=== PATIENT | male | born 1955 | race Caucasian/White ===

== ENCOUNTER 2018-02-07 03:04 | Inpatient (IN) | payer OTHER ==
[~2018-02-07] VITALS: Ht 175.3 cm; Wt 100.3 kg
[2018-02-07 03:06] VITALS: BP 243/134; PULSE 120; RESP 24; TEMP 99.1; O2SAT 96
[2018-02-07] MEDS ORDERED: LABETALOL HCL 100 MG/20 ML VIAL IV PUSH ONE (03:15)
[2018-02-07] MEDS ORDERED: CLINDAMYCIN 600 MG/NS PREMIX 50 ML IV ONE (03:15)
[2018-02-07 03:16] VITALS: BP 181/97; PULSE 98; RESP 20; O2SAT 94
--- NOTE | 2018-02-07 03:22 | PD ---
HPI Chief Complaint: Respiratory Symptoms Time Seen by Provider: 03:06 Travel History International Travel<30 days: No Contact w/Intl Traveler<30days: No Traveled to known affect area: No History of Present Illness HPI pt is having neck swelling started as a small lump on his right neck and rapidly swelled to entire submental area , pt feels tightness in his neck area and has obvious enlargement of his neck , sub mental area submandible area swollen to the point of looking like a goiter denies thyroid issues and the rapid swelling occurred within 24-36 hours , he took nothing for the swelling . he feels as if neck is tight , denies choking sensation , has not seen another md for this complaint [facility] Past Medical History Hypertension: Yes Tetanus Vaccination: > 5 Years Influenza Vaccination: No Past Surgical History Surgical History: No Previous Surgery Social History Alcohol Use: Yes (occ) Tobacco Use: No Substance Use: No Allergies-Medications (Allergen,Severity, Reaction): Coded Allergies: No Known Allergies (Verified Allergy, Unknown, 02/07/18) Reported Meds & Prescriptions Reported Meds & Active Scripts Active No Active Prescriptions or Reported Medications Review of Systems Except as stated in HPI: all other systems reviewed are Neg Physical Exam Narrative GENERAL: pt has neck swelling obvious to lower neck SKIN: Warm and dry. HEAD: Atraumatic. Normocephalic. EYES: Pupils equal and round. No scleral icterus. No injection or drainage. ENT: No nasal bleeding or discharge. Mucous membranes pink and moist. NECK: swelling to neck area area posterior pharynx is normal CARDIOVASCULAR: Regular rate and rhythm. RESPIRATORY: No accessory muscle use. Clear to auscultation. Breath sounds equal bilaterally. GASTROINTESTINAL: Abdomen soft, non-tender, nondistended. Hepatic and splenic margins not palpable. MUSCULOSKELETAL: Extremities without clubbing, cyanosis, or edema. No obvious deformities. NEUROLOGICAL: Awake and alert. No obvious cranial nerve deficits. Motor grossly within normal limits. Five out of 5 muscle strength in the arms and legs. Normal speech. PSYCHIATRIC: Appropriate mood and affect; insight and judgment normal. Data Data Last Documented VS Orders Orders Labetalol Inj (Trandate Inj) (02/07/18 03:15) Clindamycin 600 Mg/Ns Premix (Cleocin 60 (02/07/18 03:15) Ct Soft Tiss Neck W/O Iv Cont (02/07/18 ) Complete Blood Count With Diff (02/07/18 03:06) Blood Culture (02/07/18 03:06) Comprehensive Metabolic Panel (02/07/18 03:06) Lipase (02/07/18 03:06) Lactic Acid (02/07/18 03:18) Admit Order (Ed Use Only) (02/07/18 05:00) Dexamethasone Inj (Decadron Inj) (02/07/18 05:00) Labs Laboratory Tests Test 02/07/18 03:13 02/07/18 03:38 White Blood Count 20.0 TH/MM3 Red Blood Count 5.12 MIL/MM3 Hemoglobin 16.2 GM/DL Hematocrit 46.2 % Mean Corpuscular Volume 90.4 FL Mean Corpuscular Hemoglobin 31.6 PG Mean Corpuscular Hemoglobin Concent 35.0 % Red Cell Distribution Width 13.0 % Platelet Count 174 TH/MM3 Mean Platelet Volume 8.9 FL Neutrophils (%) (Auto) 86.8 % Lymphocytes (%) (Auto) 7.7 % Monocytes (%) (Auto) 5.0 % Eosinophils (%) (Auto) 0.0 % Basophils (%) (Auto) 0.5 % Neutrophils # (Auto) 17.4 TH/MM3 Lymphocytes # (Auto) 1.5 TH/MM3 Monocytes # (Auto) 1.0 TH/MM3 Eosinophils # (Auto) 0.0 TH/MM3 Basophils # (Auto) 0.1 TH/MM3 CBC Comment DIFF FINAL Differential Comment Blood Urea Nitrogen 11 MG/DL Creatinine 1.15 MG/DL Random Glucose 287 MG/DL Total Protein 7.8 GM/DL Albumin 3.4 GM/DL Calcium Level 8.9 MG/DL Alkaline Phosphatase 98 U/L Aspartate Amino Transf (AST/SGOT) 16 U/L Alanine Aminotransferase (ALT/SGPT) 27 U/L Total Bilirubin 1.7 MG/DL Sodium Level 136 MEQ/L Potassium Level 3.5 MEQ/L Chloride Level 98 MEQ/L Carbon Dioxide Level 26.0 MEQ/L Anion Gap 12 MEQ/L Estimat Glomerular Filtration Rate 65 ML/MIN Hemoglobin A1c 9.9 % Lipase 62 U/L Lactic Acid Level 1.9 mmol/L MDM Medical Decision Making Medical Screen Exam Complete: Yes Emergency Medical Condition: Yes Medical Record Reviewed: Yes Differential Diagnosis goiter vs ludwigs angina vs parotiditis vs trench mouth vs thyroid CA or cystic thyroid nodule other Narrative Course CT shows significant fullness to the submental area bilateral with possible early abscess . WBC 20 pt given clindmycin IV and admitted for close follow of airway and resp status, However at this time he is protecting his airway and no indication to intubate in ER at this time, no drooling no voice change, will admit for ENT consult in the AM Diagnosis Primary Impression: Swollen neck Admitting Information Admitting Physician Requests: Admit Scripts No Active Prescriptions or Reported Meds Neftaly Cash MD Feb 07, 2018 03:22
[2018-02-07 03:29] LABS: AUTOMATED NEUTROPHIL # 17.4 TH/MM3 (1.8-7.7); BASOPHIL # 0.1 TH/MM3 (0-0.2); BASOPHIL % 0.5 % (0.0-2.0); HEMATOCRIT 46.2 % (39.0-51.0); HEMOGLOBIN 16.2 GM/DL (13.0-17.0); LYMPH % 7.7 % (9.0-44.0); LYMPHOCYTE # 1.5 TH/MM3 (1.0-4.8); MEAN CELL VOLUME 90.4 FL (80.0-100.0); MEAN CORPUSCULAR HEMOGLOBIN 31.6 PG (27.0-34.0); MEAN PLATELET VOLUME 8.9 FL (7.0-11.0); NEUT % 86.8 % (16.0-70.0); PLATELET COUNT 174 TH/MM3 (150-450); RED BLOOD COUNT 5.12 MIL/MM3 (4.50-5.90)
[2018-02-07 04:01] LABS: ALBUMIN 3.4 GM/DL (3.4-5.0); ALT (GPT) 27 U/L (12-78); AST (GOT) 16 U/L (15-37); BLOOD UREA NITROGEN 11 MG/DL (7-18); CALCIUM 8.9 MG/DL (8.5-10.1); CHLORIDE 98 MEQ/L (98-107); CREATININE 1.15 MG/DL (0.60-1.30); GLOMERULAR FILTRATION RATE 65 ML/MIN (>89); GLUCOSE,RANDOM 287 MG/DL (74-106); SODIUM (NA) 136 MEQ/L (136-145)
[2018-02-07 04:03] LABS: ALKALINE PHOSPHATASE 98 U/L (45-117); TOTAL BILIRUBIN ADULT 1.7 MG/DL (0.2-1.0); TOTAL PROTEIN 7.8 GM/DL (6.4-8.2)
--- NOTE | 2018-02-07 04:05 | RADRPT ---
EXAM DATE: 02/07/2018 3:34 AM EDT AGE/SEX: 62 years / Male INDICATIONS: Right side lump. CLINICAL DATA: This is the patient's initial encounter. Patient reports that signs and symptoms have been present for 1 day and indicates a pain score of 5/10. MEDICAL/SURGICAL HISTORY: Hypertension. None. RADIATION DOSE: 17.29 CTDI (mGy) COMPARISON: No prior exams available for comparison. TECHNIQUE: Helical acquisition was performed using a multirow detector CT scanner without contrast. Using automated exposure control and adjustment of the mA and/or kV according to patient size, radiat ion dose was kept as low as reasonably achievable to obtain optimal diagnostic quality images. DICOM format image data is available electronically for review and comparison. FINDINGS: Nasopharynx: The nasopharyngeal airway has a normal configuration. No mucosal thickening or mass is seen. Oropharynx: The left tonsillar pillar is thicker than the right. There is fullness of the left aryep iglottic fold. Larynx: The supraglottic, glottic, and infraglottic structures are intact. Parapharyngeal: The parapharyngeal space is intact. Salivary Glands: The parotid and submandibular glands are intact. Lymph Nodes: There is a prominent right submandibular lymph node measuring 2.8 x 2.3 cm across. Ther e is very impressive subcutaneous edema in the anterior and submandibular regions. I don't see draina ble fluid collection. There is very impressive diffuse subcutaneous edema extending into the submenta l region. There are reactive lymph nodes and retrojugular chains bilaterally Thyroid: Grossly intact. Bones: Unremarkable. CONCLUSION: 1. Very impressive edema in the submental and submandibular regions. Prominent lymph node underneath the right side of the mandible. Concerning thickening of the left tonsillar pillar and thickening o f the left aryepiglottic fold. Differential would include a tonsillar infection/abscess or conceivabl y soft tissue malignancy. Directed visualization with an ENT referral is recommended in the a.m. Electronically signed by: Mata Martins MD 02/07/2018 4:04 AM EDT
[2018-02-07] MEDS ORDERED: DEXAMETHASONE SOD PHOS 4 MG/ML VIAL IV PUSH ONE (05:00)
[2018-02-07 05:02] VITALS: BP 168/92; PULSE 89; RESP 18; O2SAT 96
[2018-02-07] MEDS ORDERED: CLINDAMYCIN 600 MG/NS PREMIX 50 ML IV SCH (05:15)
[2018-02-07] MEDS ORDERED: NALOXONE HCL 0.4 MG/ML AMP IV PUSH PRN (07:15)
[2018-02-07] MEDS ORDERED: ONDANSETRON ODT 4 MG TAB PO PRN (07:15)
[2018-02-07] MEDS ORDERED: SENNOSIDES 8.6 MG TAB PO PRN (07:15)
[2018-02-07] MEDS ORDERED: LACTULOSE SYRUP 20 GM/30 ML CUP PO PRN (07:15)
[2018-02-07] MEDS ORDERED: BISACODYL 10 MG SUPP RECTAL PRN (07:15)
[2018-02-07] MEDS ORDERED: ACETAMINOPHEN 325 MG TAB PO PRN ×2 (07:15)
[2018-02-07] MEDS ORDERED: ACETAMINOPHEN/HYDROcodone 325 MG/5 MG TAB PO PRN (07:15)
[2018-02-07] MEDS ORDERED: MAGNESIUM HYDROXIDE SUSP 30 ML CUP PO PRN (07:15)
[2018-02-07] MEDS ORDERED: SODIUM CHLORIDE 0.9% FLUSH 10 ML FLUSH IV FLUSH PRN (07:15)
[2018-02-07 07:23] VITALS: BP 180/101; PULSE 87; RESP 18; TEMP 98.3; O2SAT 96
[2018-02-07] MEDS: SODIUM CHLORIDE 0.9% FLUSH 10 ML FLUSH IV FLUSH SCH ×2 (09:00→21:00)
[2018-02-07] MEDS: DOCUSATE SODIUM 50 MG/SENNA 8.6 MG TAB PO SCH ×2 (09:00→21:35)
[2018-02-07] MEDS ORDERED: DEXTROSE 50% IN WATER 50 ML VIAL(D50) IV PUSH PRN (09:30)
[2018-02-07] MEDS ORDERED: GLUCAGON 1 MG/ML VIAL OTHER PRN (09:30)
--- NOTE | 2018-02-07 09:30 | HHI.HP ---
HPI Service CP Hospitalists Primary Care Physician No Primary Care Physician Admission Diagnosis neck infection Chief Complaint: Neck swelling Travel History International Travel<30 Days: No Contact w/Intl Traveler <30 Da: No Traveled to Known Affected Are: No History of Present Illness This is a 62-year-old male patient with past medical history which includes hypertension not currently on medications. Patient presents to emergency department with reports of neck swelling which started 3 days ago (on Sunday) as a small lump on the right side of his neck which is has increased to the entire neck. Patient also reports associated feeling of tightness/fullness throughout his neck. Patient reports he has had, "bad teeth," for sometime. Patient denies fevers or chills. Patient also denies shortness of breath or drooling, however patient does report some coughing/choking when he lays flat and difficulty swallowing food. Patient offers no other medical complaints at this time denies fevers chills cough congestion shortness of breath chest pain nausea vomiting diarrhea constipation or unexpected weight loss. Review of Systems Constitutional: DENIES: Fatigue, Fever, Weight loss, Chills Respiratory: COMPLAINS OF: Cough (coughing/choking when laying flat), DENIES: Sputum production, Shortness of breath Cardiovascular: DENIES: Chest pain, Palpitations, Dyspnea on Exertion, Lower Extremity Edema Musculoskeletal: COMPLAINS OF: Stiffness, Neck pain Neurologic: DENIES: Abnormal gait, Headache, Localized weakness Psychiatric: DENIES: Anxiety, Confusion, Depression Past Family Social History Past Medical History Hypertension not on medication Past Surgical History Denies prior surgeries Reported Medications Denies daily medications Allergies: Coded Allergies: No Known Allergies (Verified Allergy, Unknown, 02/07/18) Family History Reviewed and noncontributory Social History Retired truck dispatcher EtOH 2 beers per day Denies tobacco use now in the past Denies illicit drug use Physical Exam Vital Signs Vital Signs Date Time Temp Pulse Resp B/P (MAP) Pulse Ox O2 Delivery O2 Flow Rate FiO2 02/07/18 07:23 98.3 87 18 180/101 (127) 96 Room Air 02/07/18 07:21 18 96 Room Air 02/07/18 05:02 89 18 168/92 (117) 96 Room Air 02/07/18 03:16 98 20 181/97 (125) 94 Room Air 02/07/18 03:08 130 18 95 Room Air 02/07/18 03:06 99.1 120 24 243/134 (170) 96 Physical Exam GENERAL: This is a well-nourished, well-developed patient, with obvious neck edema SKIN: No rashes, ecchymoses or lesions. Cool and dry. HEAD: Atraumatic. Normocephalic. No temporal or scalp tenderness. EYES: Pupils equal round and reactive. Extraocular motions intact. No scleral icterus. No injection or drainage. ENT: Nose without bleeding, purulent drainage or septal hematoma. Uvula midline. Airway patent. Poor dentition, multiple teeth with decay NECK: Trachea midline. firm edema the neck including the submandibular and submental mental areas with lymphadenopathy. Tender to palpation CARDIOVASCULAR: Regular rate and rhythm 2/3 diastolic murmur noted RESPIRATORY: Clear to auscultation. Breath sounds equal bilaterally. GASTROINTESTINAL: Abdomen soft, non-tender, nondistended. MUSCULOSKELETAL: Extremities without clubbing, cyanosis, or edema. No joint tenderness, effusion, or edema noted. No calf tenderness. Negative Homans sign bilaterally. NEUROLOGICAL: Awake and alert. No focal deficits appreciated. Motor and sensory grossly within normal limits. Five out of 5 muscle strength in all muscle groups. Normal speech. Laboratory Laboratory Tests Test 02/07/18 03:13 02/07/18 03:38 White Blood Count 20.0 Red Blood Count 5.12 Hemoglobin 16.2 Hematocrit 46.2 Mean Corpuscular Volume 90.4 Mean Corpuscular Hemoglobin 31.6 Mean Corpuscular Hemoglobin Concent 35.0 Red Cell Distribution Width 13.0 Platelet Count 174 Mean Platelet Volume 8.9 Neutrophils (%) (Auto) 86.8 Lymphocytes (%) (Auto) 7.7 Monocytes (%) (Auto) 5.0 Eosinophils (%) (Auto) 0.0 Basophils (%) (Auto) 0.5 Neutrophils # (Auto) 17.4 Lymphocytes # (Auto) 1.5 Monocytes # (Auto) 1.0 Eosinophils # (Auto) 0.0 Basophils # (Auto) 0.1 CBC Comment DIFF FINAL Differential Comment Blood Urea Nitrogen 11 Creatinine 1.15 Random Glucose 287 Total Protein 7.8 Albumin 3.4 Calcium Level 8.9 Alkaline Phosphatase 98 Aspartate Amino Transf (AST/SGOT) 16 Alanine Aminotransferase (ALT/SGPT) 27 Total Bilirubin 1.7 Sodium Level 136 Potassium Level 3.5 Chloride Level 98 Carbon Dioxide Level 26.0 Anion Gap 12 Estimat Glomerular Filtration Rate 65 Lipase 62 Lactic Acid Level 1.9 Date/Time Source Procedure Growth Status 02/07/18 03:13 Blood Peripheral Aerobic Blood Culture Pending Received 02/07/18 03:13 Blood Peripheral Anaerobic Blood Culture Pending Received Result Diagram: 02/07/18 0313 02/07/18 0313 Imaging Last Impressions Neck CT 02/07/18 0000 Signed Impressions: CONCLUSION: 1. Very impressive edema in the submental and submandibular regions. Prominent lymph node underneath the right side of the mandible. Concerning thickening o f the left tonsillar pillar and thickening of the left aryepiglottic fold. Diff erential would include a tonsillar infection/abscess or conceivably soft tissue malignancy. Directed visualization with an ENT referral is recommended in the a.m. Caprini VTE Risk Assessment Caprini VTE Risk Assessment: No/Low Risk (score <= 1) Caprini Risk Assessment Model Point Value = 1 Point Value = 2 Point Value = 3 Point Value = 5 Age 41-60 Minor surgery BMI > 25 kg/m2 Swollen legs Varicose veins or History of unexplained or recurrent spontaneous Oral contraceptives or hormone replacement Sepsis (< 1 month) Serious lung disease, including pneumonia (< 1 month) Abnormal pulmonary function Acute myocardial infarction Congestive heart failure (< 1 month) History of inflammatory bowel disease Medical patient at bed rest Age 61-74 Arthroscopic surgery Major open surgery (> 45 min) Laparoscopic surgery (> 45 min) Malignancy Confined to bed (> 72 hours) Immobilizing plaster cast Central venous access Age >= 75 History of VTE Family history of VTE Factor V Leiden Prothrombin [id number] Lupus anticoagulant Anticardiolipin antibodies Elevated serum homocysteine Heparin-induced thrombocytopenia Other congenital or acquired thrombophilia Stroke (< 1 month) Elective arthroplasty Hip, pelvis, or leg fracture Acute spinal cord injury (< 1 month) Prophylaxis Regimen Total Risk Factor Score Risk Level Prophylaxis Regimen 0-1 Low Early ambulation 2 Moderate Order ONE of the following: *Sequential Compression Device (SCD) *Heparin 5000 units SQ BID 3-4 Higher Order ONE of the following medications: *Heparin 5000 units SQ TID *Enoxaparin/Lovenox 40 mg SQ daily (WT < 150 kg, CrCl > 30 mL/min) *Enoxaparin/Lovenox 30 mg SQ daily (WT < 150 kg, CrCl > 10-29 mL/min) *Enoxaparin/Lovenox 30 mg SQ BID (WT < 150 kg, CrCl > 30 mL/min) AND/OR *Sequential Compression Device (SCD) 5 or more Highest Order ONE of the following medications: *Heparin 5000 units SQ TID (Preferred with Epidurals) *Enoxaparin/Lovenox 40 mg SQ daily (WT < 150 kg, CrCl > 30 mL/min) *Enoxaparin/Lovenox 30 mg SQ daily (WT < 150 kg, CrCl > 10-29 mL/min) *Enoxaparin/Lovenox 30 mg SQ BID (WT < 150 kg, CrCl > 30 mL/min) AND *Sequential Compression Device (SCD) Assessment and Plan Problem List: (1) Leukocytosis ICD Codes: D72.829 - Elevated white blood cell count, unspecified Plan: Peritonsillar infection/abscess versus soft tissue malignancy Leukocytosis related to above Patient presents to [facility] with reports of right-sided neck edema CT of the neck reviewed and reveals very impressive edema in the sub-min total and submandibular regions. Prominent lymph node underneath the right side of the mandible. Concerning thickening of the left tonsillar pillar and thickening of the left aryepiglottic fold. Differential would include a peritonsillar infection/abscess or convincingly soft tissue malignancy. Direct visual visualization with ENT referral is recommended in the a.m. ENT has been consulted, awaiting further recommendations clear liquid diet IV fluids for hydration Bosque as needed for pain Patient was started on clindamycin IV in the emergency department ENT increase Clindamycin to 900 mg IV Q8H and added Rocephin 1 gram Q12H Patient given dexamethasone 8 mg 1 in emergency department Dexamethasone 4 mg IV Q6H DVT prophylaxis with SCDs (2) Hypertensive urgency ICD Codes: I16.0 - Hypertensive urgency Plan: Patient presented to the emergency department the blood pressure of 243/ 134 Patient reports history of hypertension but does not take medications on a daily basis Patient given labetalol 20 mg 1 blood pressure has decreased slightly but is still elevated Continue with clonidine 0.1 mg as needed for hypertension Start nifedipine 30 mg PO BID (3) Hyperglycemia ICD Codes: R73.9 - Hyperglycemia, unspecified Plan: Patient was given IV dexamethasone in emergency department glucose measurement 287 on BMP This may be steroid-induced hyperglycemia versus undiagnosed diabetes mellitus We will check hemoglobin A1c initiate Accu-Cheks before meals at bedtime with sliding scale insulin coverage Assessment and Plan Patient examined. Assessment and plan formulated with Chastity Campbell PA-C. I agree with the above. Physician Certification 2 Midnight Certification Type: Admission for Inpatient Services Order for Inpatient Services The services are ordered in accordance with Medicare regulations or non- Medicare payer requirements, as applicable. In the case of services not specified as inpatient-only, they are appropriately provided as inpatient services in accordance with the 2-midnight benchmark. Estimated LOS (days): 4 days is the estimated time the patient will need to remain in the hospital, assuming treatment plan goals are met and no additional complications. Post-Hospital Plan: Home Chastity Campbell Feb 07, 2018 09:30 Veto Leal DO Feb 09, 2018 23:47
[2018-02-07] MEDS: SODIUM CHLOR 0.9% 1000 ML INJ 1,000 ML IV SCH ×2 (10:03→13:22)
[2018-02-07 12:00] VITALS: BP 205/116; PULSE 87; RESP 18; TEMP 97.4; O2SAT 96
[2018-02-07] MEDS: CLINDAMYCIN 600 MG/NS PREMIX 50 ML IV SCH ×2 (12:00→21:35)
[2018-02-07] MEDS: INSULIN ASPART SUPPLEMENTAL SCALE SQ SCH ×3 (12:00→21:00)
[2018-02-07] MEDS: NIFEdipine 30 MG SUSTAINED RELEASE TAB PO SCH ×2 (12:59→21:35)
[2018-02-07] MEDS: DEXAMETHASONE SOD PHOS 4 MG/ML VIAL IV PUSH SCH ×2 (13:00→17:26)
[2018-02-07 16:30] LABS: HEMOGLOBIN A1C 9.9 % (4.3-6.0)
--- NOTE | 2018-02-07 17:15 | MB ---
cc: Miguel Shultz MD DATE: 02/07/2018 DATE OF CONSULTATION: 02/07/2018 REQUESTING PHYSICIAN: Requested by Dr. Leal. REASON FOR ENT CONSULTATION: Neck infection. HISTORY OF PRESENT ILLNESS: Doug Paul is a previously healthy 62-year-old man who presented to the emergency room early in the morning on 02/07/2018 complaining of a few days of progressive pain and swelling in the midline and left side of his neck. He reports this began with a small area of involvement along the inferior border of the mandible near the right parotid, but it spread deeply through his neck and is now primarily in the midline and on the opposite side. He noted some mild respiratory compromise on his presentation at the emergency room. He reports he has had bad teeth for many years, but has never had an acute infection of his teeth and his teeth are comfortable at this time. A CT scan was obtained in the emergency room which showed extensive involvement of soft tissues in the submental and right submandibular area extending into the left parapharyngeal area. There was no discrete fluid collection developing within the involved areas of his neck. He was given Decadron while in the emergency room and reports he feels somewhat better, but according to nursing staff, they have not yet had adequate venous access for him to begin his IV antibiotic therapy of Rocephin 1 gram IV piggyback every 12 hours and clindamycin 900 mg every 8 hours. His white count on presentation was 20,000. He was afebrile. Denies chills. PAST SURGICAL HISTORY: No prior surgeries. PAST MEDICAL HISTORY: Includes hypertension. MEDICATIONS: He is not on medication. ALLERGIES: HE HAS NO KNOWN ALLERGIES. SOCIAL HISTORY: No tobacco or drug use. PHYSICAL EXAMINATION: GENERAL: He is alert and cooperative, in no acute distress. He states he is not particularly painful at this time. VITAL SIGNS: Temperature 97.4, respirations 18, O2 saturation 96 percent on room air, BP 205/116. HEAD: His head is normocephalic and atraumatic. FACE: There is mild edema in the lower half of the face. ORAL CAVITY: There is no sign of mucosal lesions. No inflammation of tonsils or soft palate. There is some inflammation and swelling in the floor of mouth. This does not displace the tongue. NECK: There is diffuse firm edema and erythema involving the left submandibular and submental areas. This is surprisingly nontender. There is no fluctuance noted. EARS: Normal auricles, ear canals and tympanic membranes. NOSE: Patent bilaterally. FIBEROPTIC EXAM: On fiberoptic examination, axial view to the hypopharynx down to the larynx shows some edema of the left arytenoid and piriform sinus. This does not compromise the airway. Cord mobility is normal. ASSESSMENT: Left cervical and parapharyngeal cellulitis without development of abscess. PLAN: Discussed with the patient and with the nursing staff. They are attempting at this time to obtain IV access and begin the Rocephin and clindamycin treatment. If this is begun at an appropriate interval, he should be able to avoid developing into an abscess. I will follow with him in-house. When IV begins, he will need at least 48 hours of treatment once the therapy has been started. MD BREANA Aguilar/WILY , 04:51 PM , 05:13 PM
--- NOTE | 2018-02-07 18:38 | ECHRPT ---
Indication: MURMUR CONCLUSIONS The left ventricular systolic function is normal with an estimated ejection fraction in the range of 60-65%. Wall thickness is measured at the upper limits of normal. Trace MR BP: / HR: Rhythm: MEASUREMENTS (Male / Female) Normal Values Technical Quality:Good 2D ECHO LV Diastolic Diameter PLAX 4.3 cm 4.2 - 5.9 / 3.9 - 5.3 cm LV Systolic Diameter PLAX 3.1 cm IVS Diastolic Thickness 1.3 cm 0.6 - 1.0 / 0.6 - 0.9 cm LVPW Diastolic Thickness 1.3 cm 0.6 - 1.0 / 0.6 - 0.9 cm LV Relative Wall Thickness 0.6 RV Internal Dim ED PLAX 3.0 cm M-MODE Aortic Root Diameter MM 3.3 cm LA Systolic Diameter MM 3.9 cm LA Ao Ratio MM 1.2 AV Cusp Separation MM 2.1 cm FINDINGS LEFT VENTRICLE The left ventricular systolic function is normal with an estimated ejection fraction in the range of 60-65%. Wall thickness is measured at the upper limits of normal. Normal left ventricular size. RIGHT VENTRICLE The right ventricular size is normal. LEFT ATRIUM The left atrial size is normal. RIGHT ATRIUM The right atrial size is normal. ATRIAL SEPTUM Normal atrial septal thickness without atrial level shunting by limited color doppler interrogation. AORTA The aortic root and proximal ascending aorta are not well visualized. MITRAL VALVE Trace mitral valve regurgitation. AORTIC VALVE Trileaflet aortic valve. No aortic valve stenosis or regurgitation. TRICUSPID VALVE Structurally normal tricuspid valve. No tricuspid valve stenosis or regurgitation. PULMONARY VALVE No pulmonary valve regurgitation or stenosis. VESSELS The inferior vena cava was not well visualized. PERICARDIUM There is no pericardial effusion. Star Li MD, FACC, FSCAI (Electronically Signed) Final Date:07 February 2018 18:37
[2018-02-07 20:00] VITALS: BP 187/105; PULSE 92; RESP 19; TEMP 98.1; O2SAT 92
[2018-02-08] VITALS: BP 171/99; PULSE 92; RESP 19; TEMP 98; O2SAT 92
[2018-02-08 04:00] VITALS: BP 142/85; PULSE 72; RESP 17; TEMP 97.5; O2SAT 94
[2018-02-08] MEDS: CLINDAMYCIN 600 MG/NS PREMIX 50 ML IV SCH ×2 (04:00→12:39)
[2018-02-08] MEDS: DEXAMETHASONE SOD PHOS 4 MG/ML VIAL IV PUSH SCH ×4 (06:00→17:51)
[2018-02-08 07:06] LABS: AUTOMATED NEUTROPHIL # 18.1 TH/MM3 (1.8-7.7); BASOPHIL % 0.1 % (0.0-2.0); HEMATOCRIT 43.3 % (39.0-51.0); HEMOGLOBIN 14.7 GM/DL (13.0-17.0); LYMPH % 5.4 % (9.0-44.0); LYMPHOCYTE # 1.1 TH/MM3 (1.0-4.8); MEAN CORPUSCULAR HEMOGLOBIN 31.7 PG (27.0-34.0); MEAN CORPUSCULAR HGB CONC 34.1 % (32.0-36.0); MEAN PLATELET VOLUME 9.3 FL (7.0-11.0); MONO % 3.4 % (0.0-8.0); MONOCYTE # 0.7 TH/MM3 (0-0.9); NEUT % 91.1 % (16.0-70.0); PLATELET COUNT 215 TH/MM3 (150-450); RED BLOOD COUNT 4.65 MIL/MM3 (4.50-5.90); RED CELL DISTRIBUTION WIDTH 13.4 % (11.6-17.2); WHITE BLOOD COUNT 19.9 TH/MM3 (4.0-11.0)
[2018-02-08 07:37] LABS: ALKALINE PHOSPHATASE 110 U/L (45-117); ALT (GPT) 28 U/L (12-78); AST (GOT) 20 U/L (15-37); BICARBONATE 23.6 MEQ/L (21.0-32.0); BLOOD UREA NITROGEN 25 MG/DL (7-18); CALCIUM 9.1 MG/DL (8.5-10.1); CHLORIDE 101 MEQ/L (98-107); CREATININE 1.23 MG/DL (0.60-1.30); GLOMERULAR FILTRATION RATE 60 ML/MIN (>89); GLUCOSE,RANDOM 406 MG/DL (74-106); SODIUM (NA) 137 MEQ/L (136-145); TOTAL BILIRUBIN ADULT 0.9 MG/DL (0.2-1.0); TOTAL PROTEIN 7.8 GM/DL (6.4-8.2)
[2018-02-08 08:00] VITALS: BP 142/77; PULSE 71; RESP 18; TEMP 97.5; O2SAT 94
[2018-02-08] MEDS: NIFEdipine 30 MG SUSTAINED RELEASE TAB PO SCH ×2 (08:36→21:47)
[2018-02-08] MEDS: DOCUSATE SODIUM 50 MG/SENNA 8.6 MG TAB PO SCH ×2 (08:37→21:47)
[2018-02-08] MEDS: SODIUM CHLORIDE 0.9% FLUSH 10 ML FLUSH IV FLUSH SCH ×2 (08:37→21:47)
[2018-02-08] MEDS: INSULIN ASPART SUPPLEMENTAL SCALE SQ SCH ×4 (08:38→21:48)
[2018-02-08 12:00] VITALS: BP 139/85; PULSE 71; RESP 18; TEMP 97.5; O2SAT 97
[2018-02-08] MEDS ORDERED: INSULIN ASPART IV ONE ×2 (13:15→15:30)
[2018-02-08] MEDS: SODIUM CHLOR 0.9% 1000 ML INJ 1,000 ML IV SCH ×2 (14:24→21:48)
[2018-02-08] MEDS: cefTRIAXone INJ 1,000 MG in SODIUM CHLORIDE 0.9% INJ 100 ML IV SCH (14:24)
[2018-02-08] MEDS ORDERED: [UNRECOGNIZED DRUG - OTHER] IV ONE (15:30)
[2018-02-08 16:00] VITALS: BP 160/82; PULSE 73; RESP 20; TEMP 97.3; O2SAT 96
--- NOTE | 2018-02-08 16:57 | HHI.PR ---
Subjective Remarks No new complaints. Pt is able to swallow without difficulties. Objective Vitals Vital Signs Date Time Temp Pulse Resp B/P (MAP) Pulse Ox O2 Delivery O2 Flow Rate FiO2 02/08/18 12:00 97.5 71 18 139/85 (103) 97 02/08/18 08:00 97.5 71 18 142/77 (98) 94 02/08/18 04:00 97.5 72 17 142/85 (104) 94 02/08/18 00:00 98.0 92 19 171/99 (123) 92 02/07/18 20:00 98.1 92 19 187/105 (132) 92 Result Diagram: 02/08/18 0608 02/08/18 0608 Imaging Last Impressions Neck CT 02/07/18 0000 Signed Impressions: CONCLUSION: 1. Very impressive edema in the submental and submandibular regions. Prominent lymph node underneath the right side of the mandible. Concerning thickening o f the left tonsillar pillar and thickening of the left aryepiglottic fold. Diff erential would include a tonsillar infection/abscess or conceivably soft tissue malignancy. Directed visualization with an ENT referral is recommended in the a.m. Objective Remarks GENERAL: This is a well-nourished, well-developed patient, in no apparent distress. CARDIOVASCULAR: Regular rate and rhythm without murmurs, gallops, or rubs. RESPIRATORY: Clear to auscultation. Breath sounds equal bilaterally. No wheezes , rales, or rhonchi. GASTROINTESTINAL: Abdomen soft, non-tender, nondistended. Normal active bowel sounds MUSCULOSKELETAL: Extremities without clubbing, cyanosis, or edema. NEURO: Alert & Oriented x4 to person, place, time, situation. Moves all ext x4 HEENT: marked swelling of soft tissue under jaw, but some improvement from admission. A/P Problem List: (1) Leukocytosis ICD Codes: D72.829 - Elevated white blood cell count, unspecified Plan: Peritonsillar infection/abscess versus soft tissue malignancy Leukocytosis related to above Patient presents to [facility] with reports of right-sided neck edema CT of the neck reviewed and reveals very impressive edema in the sub-min total and submandibular regions. Prominent lymph node underneath the right side of the mandible. Concerning thickening of the left tonsillar pillar and thickening of the left aryepiglottic fold. Differential would include a peritonsillar infection/abscess or convincingly soft tissue malignancy. Direct visual visualization with ENT referral is recommended in the a.m. - comgmt with ENT, Dr. Shultz - advance to soft diet - norco prn - IVFs - Clindamycin (02/07 - present) - Rocephin (02/08 - present) - decrease decadron to 2mg q6h - DVT prophylaxis with SCDs (2) Hyperglycemia ICD Codes: R73.9 - Hyperglycemia, unspecified Plan: - previously undiagnosed diabetic - HgA1C 9.9 (02/08) - decrease decadron to 2mg IV q6 - start levemir 15 units BID - SSI - IVFs - observe (3) Hypertensive urgency ICD Codes: I16.0 - Hypertensive urgency Plan: Patient presented to the emergency department the blood pressure of 243/ 134 Patient reports history of hypertension but does not take medications on a daily basis Patient given labetalol 20 mg 1 blood pressure has decreased slightly but is still elevated Continue with clonidine 0.1 mg as needed for hypertension - improved on procardia xl 30mg BID Veto Leal DO Feb 08, 2018 16:57
[2018-02-08] MEDS: CLINDAMYCIN 900 MG/NS PREMIX 50 ML IV SCH (17:51)
[2018-02-08 20:00] VITALS: BP 176/93; PULSE 79; RESP 20; TEMP 97.7; O2SAT 96
[2018-02-08] MEDS: cloNIDine HCL 0.1 MG TAB PO PRN (21:47)
[2018-02-08] MEDS: INSULIN DETEMIR 100 UNITS/ML VIAL SQ SCH (21:47)
[2018-02-09] VITALS: BP 157/89; PULSE 67; RESP 20; TEMP 97.8; O2SAT 96
[2018-02-09] MEDS: DEXAMETHASONE SOD PHOS 4 MG/ML VIAL IV PUSH SCH ×4 (00:26→18:07)
[2018-02-09] MEDS: CLINDAMYCIN 900 MG/NS PREMIX 50 ML IV SCH ×3 (01:40→18:07)
[2018-02-09] MEDS: cefTRIAXone INJ 1,000 MG in SODIUM CHLORIDE 0.9% INJ 100 ML IV SCH ×2 (03:54→16:33)
[2018-02-09 08:00] VITALS: BP 152/89; PULSE 67; RESP 19; TEMP 97.4; O2SAT 93
[2018-02-09] MEDS: INSULIN ASPART SUPPLEMENTAL SCALE SQ SCH ×4 (08:00→21:19)
[2018-02-09] MEDS: SODIUM CHLOR 0.9% 1000 ML INJ 1,000 ML IV SCH ×2 (09:00→21:20)
[2018-02-09] MEDS: SODIUM CHLORIDE 0.9% FLUSH 10 ML FLUSH IV FLUSH SCH ×2 (09:00→21:20)
[2018-02-09] MEDS: DOCUSATE SODIUM 50 MG/SENNA 8.6 MG TAB PO SCH ×2 (09:00→21:16)
[2018-02-09] MEDS: INSULIN DETEMIR 100 UNITS/ML VIAL SQ SCH ×2 (09:31→21:20)
[2018-02-09] MEDS: NIFEdipine 30 MG SUSTAINED RELEASE TAB PO SCH (09:31)
[2018-02-09 11:17] LABS: AUTOMATED NEUTROPHIL # 17.1 TH/MM3 (1.8-7.7); BASOPHIL # 0.1 TH/MM3 (0-0.2); BASOPHIL % 0.3 % (0.0-2.0); HEMATOCRIT 39.4 % (39.0-51.0); HEMOGLOBIN 13.9 GM/DL (13.0-17.0); LYMPH % 6.5 % (9.0-44.0); LYMPHOCYTE # 1.3 TH/MM3 (1.0-4.8); MEAN CELL VOLUME 92.2 FL (80.0-100.0); MEAN CORPUSCULAR HEMOGLOBIN 32.6 PG (27.0-34.0); MEAN CORPUSCULAR HGB CONC 35.3 % (32.0-36.0); MONO % 5.4 % (0.0-8.0); MONOCYTE # 1.1 TH/MM3 (0-0.9); NEUT % 87.8 % (16.0-70.0); PLATELET COUNT 245 TH/MM3 (150-450); RED BLOOD COUNT 4.27 MIL/MM3 (4.50-5.90); RED CELL DISTRIBUTION WIDTH 13.3 % (11.6-17.2); WHITE BLOOD COUNT 19.5 TH/MM3 (4.0-11.0)
[2018-02-09 11:41] LABS: BICARBONATE 24.8 MEQ/L (21.0-32.0); CALCIUM 8.7 MG/DL (8.5-10.1); CREATININE 1.37 MG/DL (0.60-1.30)
[2018-02-09 12:00] VITALS: BP 160/94; PULSE 68; RESP 17; TEMP 97.2; O2SAT 94
[2018-02-09 13:57] LABS: BANDS 10 % (0-6); LYMPHOCYTES 7 % (9-44); MONOCYTES 6 % (0-8); MYELOCYTES 1 % (0-0); POLYS (SEG NEUTROPHILS) 76 % (16-70)
--- NOTE | 2018-02-09 15:27 | HHI.PR ---
Subjective Remarks Patient's neck edema continues to improve offers no new concerns/complaints Tolerating PO intake without difficulty swallowing Objective Vitals Vital Signs Date Time Temp Pulse Resp B/P (MAP) Pulse Ox O2 Delivery O2 Flow Rate FiO2 02/09/18 12:00 97.2 68 17 160/94 (116) 94 02/09/18 08:00 97.4 67 19 152/89 (110) 93 02/09/18 00:00 97.8 67 20 157/89 (111) 96 02/08/18 20:00 97.7 79 20 176/93 (120) 96 02/08/18 16:00 97.3 73 20 160/82 (108) 96 Result Diagram: 02/09/18 1105 02/09/18 1105 Other Results Laboratory Tests Test 02/07/18 03:13 02/07/18 03:38 02/08/18 06:08 02/09/18 11:05 White Blood Count 20.0 TH/MM3 19.9 TH/MM3 19.5 TH/MM3 Red Blood Count 5.12 MIL/MM3 4.65 MIL/MM3 4.27 MIL/MM3 Hemoglobin 16.2 GM/DL 14.7 GM/DL 13.9 GM/DL Hematocrit 46.2 % 43.3 % 39.4 % Mean Corpuscular Volume 90.4 FL 93.0 FL 92.2 FL Mean Corpuscular Hemoglobin 31.6 PG 31.7 PG 32.6 PG Mean Corpuscular Hemoglobin Concent 35.0 % 34.1 % 35.3 % Red Cell Distribution Width 13.0 % 13.4 % 13.3 % Platelet Count 174 TH/MM3 215 TH/MM3 245 TH/MM3 Mean Platelet Volume 8.9 FL 9.3 FL 9.0 FL Neutrophils (%) (Auto) 86.8 % 91.1 % 87.8 % Lymphocytes (%) (Auto) 7.7 % 5.4 % 6.5 % Monocytes (%) (Auto) 5.0 % 3.4 % 5.4 % Eosinophils (%) (Auto) 0.0 % 0.0 % 0.0 % Basophils (%) (Auto) 0.5 % 0.1 % 0.3 % Neutrophils # (Auto) 17.4 TH/MM3 18.1 TH/MM3 17.1 TH/MM3 Lymphocytes # (Auto) 1.5 TH/MM3 1.1 TH/MM3 1.3 TH/MM3 Monocytes # (Auto) 1.0 TH/MM3 0.7 TH/MM3 1.1 TH/MM3 Eosinophils # (Auto) 0.0 TH/MM3 0.0 TH/MM3 0.0 TH/MM3 Basophils # (Auto) 0.1 TH/MM3 0.0 TH/MM3 0.1 TH/MM3 CBC Comment DIFF FINAL DIFF FINAL AUTO DIFF Differential Comment FINAL DIFF MANUAL Blood Urea Nitrogen 11 MG/DL 25 MG/DL 40 MG/DL Creatinine 1.15 MG/DL 1.23 MG/DL 1.37 MG/DL Random Glucose 287 MG/DL 406 MG/DL 261 MG/DL Total Protein 7.8 GM/DL 7.8 GM/DL Albumin 3.4 GM/DL 3.0 GM/DL Calcium Level 8.9 MG/DL 9.1 MG/DL 8.7 MG/DL Alkaline Phosphatase 98 U/L 110 U/L Aspartate Amino Transf (AST/SGOT) 16 U/L 20 U/L Alanine Aminotransferase (ALT/SGPT) 27 U/L 28 U/L Total Bilirubin 1.7 MG/DL 0.9 MG/DL Sodium Level 136 MEQ/L 137 MEQ/L 137 MEQ/L Potassium Level 3.5 MEQ/L 3.7 MEQ/L 3.8 MEQ/L Chloride Level 98 MEQ/L 101 MEQ/L 101 MEQ/L Carbon Dioxide Level 26.0 MEQ/L 23.6 MEQ/L 24.8 MEQ/L Anion Gap 12 MEQ/L 12 MEQ/L 11 MEQ/L Estimat Glomerular Filtration Rate 65 ML/MIN 60 ML/MIN 53 ML/MIN Hemoglobin A1c 9.9 % Lipase 62 U/L Lactic Acid Level 1.9 mmol/L Differential Total Cells Counted 100 Neutrophils % (Manual) 76 % Band Neutrophils % 10 % Lymphocytes % 7 % Monocytes % 6 % Neutrophils # (Manual) 17.0 TH/MM3 Myelocytes 1 % Platelet Estimate NORMAL Platelet Morphology Comment NORMAL Imaging Last Impressions Neck CT 02/07/18 0000 Signed Impressions: CONCLUSION: 1. Very impressive edema in the submental and submandibular regions. Prominent lymph node underneath the right side of the mandible. Concerning thickening o f the left tonsillar pillar and thickening of the left aryepiglottic fold. Diff erential would include a tonsillar infection/abscess or conceivably soft tissue malignancy. Directed visualization with an ENT referral is recommended in the a.m. Objective Remarks GENERAL: This is a well-nourished, well-developed patient, in no apparent distress. CARDIOVASCULAR: Regular rate and rhythm without murmurs, gallops, or rubs. RESPIRATORY: Clear to auscultation. Breath sounds equal bilaterally. No wheezes , rales, or rhonchi. GASTROINTESTINAL: Abdomen soft, non-tender, nondistended. Normal active bowel sounds MUSCULOSKELETAL: Extremities without clubbing, cyanosis, or edema. NEURO: Alert & Oriented x4 to person, place, time, situation. Moves all ext x4 HEENT: decreasing swelling of soft tissue under jaw, area is firm to touch A/P Problem List: (1) Leukocytosis ICD Codes: D72.829 - Elevated white blood cell count, unspecified Plan: Cellulitis of the neck Leukocytosis related to above Patient presents to [facility] with reports of right-sided neck edema CT of the neck reviewed and reveals very impressive edema in the sub-min total and submandibular regions. Prominent lymph node underneath the right side of the mandible. Concerning thickening of the left tonsillar pillar and thickening of the left aryepiglottic fold. Differential would include a peritonsillar infection/abscess or convincingly soft tissue malignancy. Direct visual visualization with ENT referral is recommended in the a.m. - comgmt with ENT, Dr. Shultz - advance to soft diet - norco prn - IVFs 100 ml/H - Clindamycin (02/07 - present) - Rocephin (02/08 - present) - decadron to 2mg q6h - BUN increasing to 40, creatinine 1.37, estimated GFR 53 - will recheck BMP in AM - DVT prophylaxis with SCDs (2) Hyperglycemia ICD Codes: R73.9 - Hyperglycemia, unspecified Plan: - previously undiagnosed diabetic - HgA1C 9.9 (02/08) - (02/08) decrease decadron to 2mg IV q6 - (02/08) started levemir 15 units BID - blood glucose improved will continue to monitor - SSI - IVFs - observe (3) Hypertensive urgency ICD Codes: I16.0 - Hypertensive urgency Plan: Patient presented to the emergency department the blood pressure of 243/ 134 Patient reports history of hypertension but does not take medications on a daily basis Patient given labetalol 20 mg 1 blood pressure has decreased slightly but is still elevated Continue with clonidine 0.1 mg as needed for hypertension - increase procardia xl to 60mg PO BID Assessment and Plan Patient examined. Assessment and plan formulated with Chastity Campbell PA-C. I agree with the above. Chastity Campbell Feb 09, 2018 15:27 Veto Leal DO Feb 10, 2018 14:08
[2018-02-09 16:00] VITALS: BP 185/101; PULSE 76; RESP 17; TEMP 97.8; O2SAT 95
[2018-02-09] MEDS: cloNIDine HCL 0.1 MG TAB PO PRN (17:03)
[2018-02-09 20:00] VITALS: BP 187/110; PULSE 65; RESP 18; TEMP 97.8; O2SAT 96
[2018-02-09] MEDS: NIFEdipine 60 MG SUSTAINED RELEASE TAB PO SCH (21:16)
[2018-02-10] VITALS (7 sets, daily range): BP systolic 123–218; BP diastolic 57–123; PULSE 54–71; RESP 16–20; TEMP 97.2–98.5; O2SAT 0–98
[2018-02-10] MEDS: DEXAMETHASONE SOD PHOS 4 MG/ML VIAL IV PUSH SCH ×5 (01:28→23:57)
[2018-02-10] MEDS: CLINDAMYCIN 900 MG/NS PREMIX 50 ML IV SCH ×4 (01:28→23:58)
[2018-02-10] MEDS: cloNIDine HCL 0.1 MG TAB PO PRN ×3 (01:29→20:52)
[2018-02-10] MEDS: cefTRIAXone INJ 1,000 MG in SODIUM CHLORIDE 0.9% INJ 100 ML IV SCH ×2 (04:45→15:09)
[2018-02-10] MEDS: SODIUM CHLOR 0.9% 1000 ML INJ 1,000 ML IV SCH ×2 (04:45→09:41)
[2018-02-10 06:44] LABS: AUTOMATED NEUTROPHIL # 9.7 TH/MM3 (1.8-7.7); BASOPHIL % 0.1 % (0.0-2.0); HEMATOCRIT 39.9 % (39.0-51.0); HEMOGLOBIN 13.5 GM/DL (13.0-17.0); LYMPH % 15.1 % (9.0-44.0); LYMPHOCYTE # 1.9 TH/MM3 (1.0-4.8); MEAN CELL VOLUME 92.2 FL (80.0-100.0); MEAN CORPUSCULAR HEMOGLOBIN 31.2 PG (27.0-34.0); MEAN CORPUSCULAR HGB CONC 33.9 % (32.0-36.0); MEAN PLATELET VOLUME 9.1 FL (7.0-11.0); MONO % 8.1 % (0.0-8.0); NEUT % 76.7 % (16.0-70.0); PLATELET COUNT 202 TH/MM3 (150-450); RED BLOOD COUNT 4.33 MIL/MM3 (4.50-5.90); RED CELL DISTRIBUTION WIDTH 13.6 % (11.6-17.2); WHITE BLOOD COUNT 12.6 TH/MM3 (4.0-11.0)
[2018-02-10 07:14] LABS: BICARBONATE 26.3 MEQ/L (21.0-32.0); CALCIUM 8.2 MG/DL (8.5-10.1); CREATININE 0.93 MG/DL (0.60-1.30)
[2018-02-10] MEDS: INSULIN ASPART SUPPLEMENTAL SCALE SQ SCH ×4 (08:00→20:53)
[2018-02-10] MEDS: SODIUM CHLORIDE 0.9% FLUSH 10 ML FLUSH IV FLUSH SCH ×2 (08:19→20:52)
[2018-02-10] MEDS: DOCUSATE SODIUM 50 MG/SENNA 8.6 MG TAB PO SCH ×2 (09:00→20:52)
[2018-02-10] MEDS: INSULIN DETEMIR 100 UNITS/ML VIAL SQ SCH ×2 (09:33→20:53)
[2018-02-10] MEDS: NIFEdipine 60 MG SUSTAINED RELEASE TAB PO SCH ×2 (09:33→20:57)
--- NOTE | 2018-02-10 14:18 | HHI.PR ---
Subjective Remarks No new complaints. Objective Vitals Vital Signs Date Time Temp Pulse Resp B/P (MAP) Pulse Ox O2 Delivery O2 Flow Rate FiO2 02/10/18 12:00 97.2 69 18 179/100 (126) 98 02/10/18 08:00 97.3 63 18 173/100 (124) 97 02/10/18 00:45 97.8 54 123/57 (79) 0 02/10/18 00:45 98.1 65 162/99 (120) 02/10/18 00:00 98.1 59 20 162/99 (120) 96 02/09/18 20:00 97.8 65 18 187/110 (135) 96 02/09/18 16:00 97.8 76 17 185/101 (129) 95 Result Diagram: 02/10/18 0556 02/10/18 0556 Imaging Last Impressions Neck CT 02/07/18 0000 Signed Impressions: CONCLUSION: 1. Very impressive edema in the submental and submandibular regions. Prominent lymph node underneath the right side of the mandible. Concerning thickening o f the left tonsillar pillar and thickening of the left aryepiglottic fold. Diff erential would include a tonsillar infection/abscess or conceivably soft tissue malignancy. Directed visualization with an ENT referral is recommended in the a.m. Objective Remarks GENERAL: This is a well-nourished, well-developed patient, in no apparent distress. CARDIOVASCULAR: Regular rate and rhythm without murmurs, gallops, or rubs. RESPIRATORY: Clear to auscultation. Breath sounds equal bilaterally. No wheezes , rales, or rhonchi. GASTROINTESTINAL: Abdomen soft, non-tender, nondistended. Normal active bowel sounds MUSCULOSKELETAL: Extremities without clubbing, cyanosis, or edema. NEURO: Alert & Oriented x4 to person, place, time, situation. Moves all ext x4 HEENT: swelling of soft tissue under jaw, area is firm to touch A/P Problem List: (1) Leukocytosis ICD Codes: D72.829 - Elevated white blood cell count, unspecified Plan: Cellulitis of the neck Leukocytosis related to above Patient presents to [facility] with reports of right-sided neck edema CT neck (02/07) reviewed and reveals very impressive edema in the sub-min total and submandibular regions. Prominent lymph node underneath the right side of the mandible. Concerning thickening of the left tonsillar pillar and thickening of the left aryepiglottic fold. Differential would include a peritonsillar infection/abscess or convincingly soft tissue malignancy. Direct visual visualization with ENT referral is recommended in the a.m. - comgmt with ENT, Dr. Shultz - soft diet - norco prn - IVFs 100 ml/H - Clindamycin (02/07 - present) - Rocephin (02/08 - present) - decadron 2mg q6h - Case d/w Dr. Shultz. Possible I&D 02/11 or 02/12/18 - DVT prophylaxis with SCDs (2) Hyperglycemia ICD Codes: R73.9 - Hyperglycemia, unspecified Plan: - previously undiagnosed diabetic - HgA1C 9.9 (02/08) - (02/08) decrease decadron to 2mg IV q6 - (02/08) started levemir 15 units BID - blood glucose improved will continue to monitor - SSI - observe (3) Hypertensive urgency ICD Codes: I16.0 - Hypertensive urgency Plan: Patient presented to the emergency department the blood pressure of 243/ 134 Patient reports history of hypertension but does not take medications on a daily basis Patient given labetalol 20 mg 1 blood pressure has decreased slightly but is still elevated Continue with clonidine 0.1 mg as needed for hypertension - procardia xl to 60mg PO BID - start cozaar 25mg BID - observe BP readings. Veto Leal DO Feb 10, 2018 14:18
[2018-02-10] MEDS ORDERED: LOSARTAN 25 MG TAB PO ONE (14:30)
[2018-02-10] MEDS ORDERED: LOSARTAN 25 MG TAB PO SCH (21:00)
[2018-02-11] VITALS: BP 172/104; PULSE 57; RESP 20; TEMP 98; O2SAT 96
[2018-02-11] MEDS: cefTRIAXone INJ 1,000 MG in SODIUM CHLORIDE 0.9% INJ 100 ML IV SCH ×2 (03:57→14:54)
[2018-02-11 04:00] VITALS: BP 152/90; PULSE 49; RESP 20; TEMP 98; O2SAT 96
[2018-02-11] MEDS: cloNIDine HCL 0.1 MG TAB PO PRN ×2 (04:00→12:40)
[2018-02-11] MEDS: DEXAMETHASONE SOD PHOS 4 MG/ML VIAL IV PUSH SCH ×3 (05:23→18:07)
[2018-02-11 07:37] LABS: BASOPHIL % 0.3 % (0.0-2.0); HEMATOCRIT 47.1 % (39.0-51.0); LYMPH % 15.4 % (9.0-44.0); LYMPHOCYTE # 1.9 TH/MM3 (1.0-4.8); MEAN CELL VOLUME 92.7 FL (80.0-100.0); MEAN CORPUSCULAR HEMOGLOBIN 31.5 PG (27.0-34.0); MEAN CORPUSCULAR HGB CONC 33.9 % (32.0-36.0); MEAN PLATELET VOLUME 9.1 FL (7.0-11.0); MONO % 4.4 % (0.0-8.0); MONOCYTE # 0.6 TH/MM3 (0-0.9); NEUT % 79.9 % (16.0-70.0); PLATELET COUNT 285 TH/MM3 (150-450); RED BLOOD COUNT 5.08 MIL/MM3 (4.50-5.90); RED CELL DISTRIBUTION WIDTH 13.4 % (11.6-17.2); WHITE BLOOD COUNT 12.5 TH/MM3 (4.0-11.0)
[2018-02-11 07:45] VITALS: BP 184/100; PULSE 61; RESP 20; TEMP 97.2; O2SAT 97
[2018-02-11 08:11] LABS: BICARBONATE 25.2 MEQ/L (21.0-32.0); CALCIUM 9.1 MG/DL (8.5-10.1); CREATININE 0.99 MG/DL (0.60-1.30); MAGNESIUM 1.9 MG/DL (1.5-2.5)
[2018-02-11 08:19] LABS: BANDS 2 % (0-6); LYMPHOCYTES 8 % (9-44); METAMYELOCYTES 1 % (0-1); MONOCYTES 4 % (0-8); POLYS (SEG NEUTROPHILS) 85 % (16-70)
[2018-02-11] MEDS: NIFEdipine 60 MG SUSTAINED RELEASE TAB PO SCH ×2 (08:55→21:07)
[2018-02-11] MEDS: LOSARTAN 50 MG TAB PO SCH ×2 (08:55→21:06)
[2018-02-11] MEDS: DOCUSATE SODIUM 50 MG/SENNA 8.6 MG TAB PO SCH ×2 (08:55→21:00)
[2018-02-11] MEDS: INSULIN DETEMIR 100 UNITS/ML VIAL SQ SCH ×2 (08:57→21:07)
[2018-02-11] MEDS: INSULIN ASPART SUPPLEMENTAL SCALE SQ SCH ×4 (08:57→21:08)
[2018-02-11] MEDS: SODIUM CHLORIDE 0.9% FLUSH 10 ML FLUSH IV FLUSH SCH ×2 (09:00→21:00)
--- NOTE | 2018-02-11 09:03 | HHI.PR ---
Subjective Remarks Patient feels much better today, reports he is now able to turn his head/move his neck without difficulty neck swelling continues to improve Per patient Dr. Shultz plans to take him to OR this afternoon Objective Vitals Vital Signs Date Time Temp Pulse Resp B/P (MAP) Pulse Ox O2 Delivery O2 Flow Rate FiO2 02/11/18 07:45 97.2 61 20 184/100 (128) 97 02/11/18 04:00 98.0 49 20 152/90 (110) 96 02/11/18 00:00 98.0 57 20 172/104 (126) 96 02/10/18 21:45 68 184/112 (136) 02/10/18 20:00 98.0 71 20 218/123 (154) 97 02/10/18 16:00 98.5 71 16 181/103 (129) 98 02/10/18 12:00 97.2 69 18 179/100 (126) 98 Result Diagram: 02/11/18 0629 02/11/18 0629 Other Results Laboratory Tests Test 02/09/18 11:05 02/10/18 05:56 02/11/18 06:29 White Blood Count 19.5 TH/MM3 12.6 TH/MM3 12.5 TH/MM3 Red Blood Count 4.27 MIL/MM3 4.33 MIL/MM3 5.08 MIL/MM3 Hemoglobin 13.9 GM/DL 13.5 GM/DL 16.0 GM/DL Hematocrit 39.4 % 39.9 % 47.1 % Mean Corpuscular Volume 92.2 FL 92.2 FL 92.7 FL Mean Corpuscular Hemoglobin 32.6 PG 31.2 PG 31.5 PG Mean Corpuscular Hemoglobin Concent 35.3 % 33.9 % 33.9 % Red Cell Distribution Width 13.3 % 13.6 % 13.4 % Platelet Count 245 TH/MM3 202 TH/MM3 285 TH/MM3 Mean Platelet Volume 9.0 FL 9.1 FL 9.1 FL Neutrophils (%) (Auto) 87.8 % 76.7 % 79.9 % Lymphocytes (%) (Auto) 6.5 % 15.1 % 15.4 % Monocytes (%) (Auto) 5.4 % 8.1 % 4.4 % Eosinophils (%) (Auto) 0.0 % 0.0 % 0.0 % Basophils (%) (Auto) 0.3 % 0.1 % 0.3 % Neutrophils # (Auto) 17.1 TH/MM3 9.7 TH/MM3 10.0 TH/MM3 Lymphocytes # (Auto) 1.3 TH/MM3 1.9 TH/MM3 1.9 TH/MM3 Monocytes # (Auto) 1.1 TH/MM3 1.0 TH/MM3 0.6 TH/MM3 Eosinophils # (Auto) 0.0 TH/MM3 0.0 TH/MM3 0.0 TH/MM3 Basophils # (Auto) 0.1 TH/MM3 0.0 TH/MM3 0.0 TH/MM3 CBC Comment AUTO DIFF DIFF FINAL AUTO DIFF Differential Total Cells Counted 100 100 Neutrophils % (Manual) 76 % 85 % Band Neutrophils % 10 % 2 % Lymphocytes % 7 % 8 % Monocytes % 6 % 4 % Neutrophils # (Manual) 17.0 TH/MM3 11.0 TH/MM3 Myelocytes 1 % Differential Comment FINAL DIFF MANUAL FINAL DIFF MANUAL Platelet Estimate NORMAL NORMAL Platelet Morphology Comment NORMAL NORMAL Blood Urea Nitrogen 40 MG/DL 27 MG/DL 21 MG/DL Creatinine 1.37 MG/DL 0.93 MG/DL 0.99 MG/DL Random Glucose 261 MG/DL 112 MG/DL 210 MG/DL Calcium Level 8.7 MG/DL 8.2 MG/DL 9.1 MG/DL Sodium Level 137 MEQ/L 140 MEQ/L 137 MEQ/L Potassium Level 3.8 MEQ/L 3.7 MEQ/L 3.5 MEQ/L Chloride Level 101 MEQ/L 104 MEQ/L 99 MEQ/L Carbon Dioxide Level 24.8 MEQ/L 26.3 MEQ/L 25.2 MEQ/L Anion Gap 11 MEQ/L 10 MEQ/L 13 MEQ/L Estimat Glomerular Filtration Rate 53 ML/MIN 83 ML/MIN 77 ML/MIN Metamyelocytes 1 % Red Cell Morphology Comment NORMAL Magnesium Level 1.9 MG/DL Imaging Last Impressions Neck CT 02/07/18 0000 Signed Impressions: CONCLUSION: 1. Very impressive edema in the submental and submandibular regions. Prominent lymph node underneath the right side of the mandible. Concerning thickening o f the left tonsillar pillar and thickening of the left aryepiglottic fold. Diff erential would include a tonsillar infection/abscess or conceivably soft tissue malignancy. Directed visualization with an ENT referral is recommended in the a.m. Objective Remarks GENERAL: This is a well-nourished, well-developed patient, in no apparent distress. CARDIOVASCULAR: Regular rate and rhythm without murmurs, gallops, or rubs. RESPIRATORY: Clear to auscultation. Breath sounds equal bilaterally. No wheezes , rales, or rhonchi. GASTROINTESTINAL: Abdomen soft, non-tender, nondistended. Normal active bowel sounds MUSCULOSKELETAL: Extremities without clubbing, cyanosis, or edema. NEURO: Alert & Oriented x4 to person, place, time, situation. Moves all ext x4 HEENT: swelling of soft tissue under jaw decreased from yesterday, area is firm to touch A/P Problem List: (1) Leukocytosis ICD Codes: D72.829 - Elevated white blood cell count, unspecified Plan: Cellulitis of the neck Leukocytosis related to above Patient presents to [facility] with reports of right-sided neck edema CT neck (02/07) reviewed and reveals very impressive edema in the sub-min total and submandibular regions. Prominent lymph node underneath the right side of the mandible. Concerning thickening of the left tonsillar pillar and thickening of the left aryepiglottic fold. Differential would include a peritonsillar infection/abscess or convincingly soft tissue malignancy. Direct visual visualization with ENT referral is recommended in the a.m. - comgmt with ENT, Dr. Shultz - sindhu prn - IVFs 100 ml/H - DC'd - Clindamycin (02/07 - present) - Rocephin (02/08 - present) - Decadron 2mg q6h - Dr. Leal discussed case d/w Dr. Shultz (02/10). Possible I&D 02/11 or . - patient NPO - DVT prophylaxis with SCDs (2) Hyperglycemia ICD Codes: R73.9 - Hyperglycemia, unspecified Plan: - previously undiagnosed diabetic - HgA1C 9.9 (02/08) - (02/08) decrease decadron to 2mg IV q6 - (02/08) started levemir 15 units BID - blood glucose improved will continue to monitor - SSI - observe (3) Hypertensive urgency ICD Codes: I16.0 - Hypertensive urgency Plan: Patient presented to the emergency department the blood pressure of 243/ 134 Patient reports history of hypertension but does not take medications on a daily basis Patient given labetalol 20 mg 1 blood pressure has decreased slightly but is still elevated Continue with clonidine 0.1 mg as needed for hypertension - procardia xl to 60mg PO BID - increase cozaar to 50mg BID - add hydralazine 10 mg PO Q8H as needed - observe BP readings. Assessment and Plan Patient examined. Assessment and plan formulated with Chastity Campbell PA-C. I agree with the above. submental abscess. going to OR today with ENT will need wet/dry dressing changes after f/u cx's. cont abx plan for oha's on dc for dm and not insulin initially..will need outpt reeval. taper off steroids when ok with ENT titrate bp meds. Chastity Campbell Feb 11, 2018 09:03 You Burris MD Feb 11, 2018 13:51
[2018-02-11] MEDS ORDERED: CHLORHEXIDINE GLUCONATE 2 % 1 PACK (2 CLOTHS) TOPICAL PRN (09:15)
[2018-02-11] MEDS ORDERED: METOPROLOL TARTRATE 25 MG TAB PO PRN (09:15)
[2018-02-11] MEDS ORDERED: LACTATED RINGER'S 1000 ML IV PRN (09:15)
[2018-02-11] MEDS ORDERED: SODIUM CHLORID 0.9% 500 ML IV PRN (09:15)
[2018-02-11] MEDS ORDERED: POVIDONE IODINE 5% (ANTISEPSIS KIT) 4 APPLICATIONS EACH NARE PRN (09:15)
[2018-02-11] MEDS: CLINDAMYCIN 900 MG/NS PREMIX 50 ML IV SCH ×2 (10:00→18:08)
[2018-02-11 12:00] VITALS: BP 189/105; PULSE 64; RESP 19; TEMP 97.2; O2SAT 98
[2018-02-11] MEDS ORDERED: SUCCINYLCHOLINE CHLORIDE 200 MG/10 ML VIAL IV ONE (12:00)
[2018-02-11] MEDS ORDERED: ONDANSETRON HCL 4 MG/2 ML VIAL IV PUSH ONE (12:00)
[2018-02-11] MEDS ORDERED: LIDOCAINE HCL 1% PF 5 ML SYRINGE OTHER ONE (12:00)
[2018-02-11] MEDS ORDERED: ESMOLOL HCL 100 MG/10 ML VIAL IV ONE (12:00)
[2018-02-11] MEDS ORDERED: PROPOFOL 200 MG/20 ML AMP IV ONE (12:00)
[2018-02-11] MEDS: hydrALAZINE HCL 10 MG TAB PO PRN (14:54)
--- NOTE | 2018-02-11 15:11 | EKG ---
Date Performed: 02/11/2018 Time Performed: 14:25:06 PTAGE: 62 years EKG: SINUS BRADYCARDIA LEFT VENTRICULAR HYPERTROPHY AND ST-T CHANGE ABNORMAL ECG NO PREVIOUS TRACING DOCTOR: Israel Romero Interpretating Date/Time 02/11/2018 15:09:26
[2018-02-11] MEDS ORDERED: ACETAMINOPHEN 1000 MG/100 ML 100 ML IV ONE (15:31)
[2018-02-11] MEDS ORDERED: LIDOCAINE 1%/EPINEPHrine 1:100,000 SOLN 30 ML VIAL ONE (15:41)
[2018-02-11] MEDS ORDERED: DO NOT ADM ANY ANTICOAGULANT DRUGS PRN (17:00)
--- NOTE | 2018-02-11 17:37 | MP ---
cc: Miguel Shultz MD DATE OF OPERATION: 02/11/2018 SURGEON: Miguel Shultz MD PREOPERATIVE DIAGNOSIS: Submental abscess. POSTOPERATIVE DIAGNOSIS: Submental abscess. PROCEDURE PERFORMED: Incision and drainage of submental abscess. INDICATIONS FOR PROCEDURE: Documented in the inpatient consultation of 02/08. DESCRIPTION OF PROCEDURE: The patient was taken to OR #10 and placed in the supine position. Following induction of general anesthesia and intubation, the patient was positioned for surgery of the submental area. He was prepped and draped for surgery. Palpation of the submental area revealed an area of maximum fluctuance just left of the midline at approximately 1 fingerbreadth below the inferior border of the mandible. This area was then opened with a 3 cm incision using a 15 blade scalpel and this continued with sharp dissection until purulent material was encountered. At this point, using a Archana clamp, the loculations of the submental abscess were broken up. These extended bilaterally into the submandibular triangles and back to the level of the hyoid bone. Approximately 100 mL of pus was expressed from the wound. The wound was then irrigated with 500 mL of saline until it returned clear and it was then packed with approximately 30 inches of 1/4-inch iodoform gauze. A dry dressing was applied and the procedure was terminated. The patient was reversed from anesthesia and taken to recovery in good condition. There were no complications. Blood loss was 60 mL. MD BREANA Aguilar/CHRISTINA , 04:50 PM , 05:36 PM
[2018-02-11 20:00] VITALS: BP 152/88; PULSE 54; RESP 18; TEMP 98.1; O2SAT 97
[2018-02-12] VITALS: BP 181/94; PULSE 52; RESP 18; TEMP 97.4; O2SAT 98
[2018-02-12] MEDS: cloNIDine HCL 0.1 MG TAB PO PRN ×2 (00:37→12:48)
[2018-02-12] MEDS: DEXAMETHASONE SOD PHOS 4 MG/ML VIAL IV PUSH SCH ×3 (00:37→21:35)
[2018-02-12] MEDS: CLINDAMYCIN 900 MG/NS PREMIX 50 ML IV SCH ×3 (02:03→16:43)
[2018-02-12 02:06] VITALS: BP 146/85
[2018-02-12] MEDS: cefTRIAXone INJ 1,000 MG in SODIUM CHLORIDE 0.9% INJ 100 ML IV SCH ×2 (03:03→14:25)
[2018-02-12 08:00] VITALS: BP 173/100; PULSE 63; RESP 20; TEMP 97.1; O2SAT 94
[2018-02-12] MEDS: INSULIN ASPART SUPPLEMENTAL SCALE SQ SCH ×4 (08:00→21:00)
[2018-02-12] MEDS: NIFEdipine 60 MG SUSTAINED RELEASE TAB PO SCH ×2 (09:17→21:35)
[2018-02-12] MEDS: LOSARTAN 50 MG TAB PO SCH ×2 (09:17→21:35)
[2018-02-12] MEDS: DOCUSATE SODIUM 50 MG/SENNA 8.6 MG TAB PO SCH ×2 (09:17→21:00)
[2018-02-12] MEDS: INSULIN DETEMIR 100 UNITS/ML VIAL SQ SCH (09:20)
[2018-02-12] MEDS: SODIUM CHLORIDE 0.9% FLUSH 10 ML FLUSH IV FLUSH SCH ×2 (09:21→21:00)
--- NOTE | 2018-02-12 10:21 | HHI.PR ---
Subjective Remarks Patient sitting up in chair post-op dressing under chin dry and intact S/P Incision and drainage of submental abscess 02/12/[address] Shultz Patient looking forward to getting DC'd Offers no new concerns/complaints Objective Vitals Vital Signs Date Time Temp Pulse Resp B/P (MAP) Pulse Ox O2 Delivery O2 Flow Rate FiO2 02/12/18 08:00 97.1 63 20 173/100 (124) 94 02/12/18 02:06 146/85 (105) 02/12/18 00:00 97.4 52 18 181/94 (123) 98 02/11/18 20:00 98.1 54 18 152/88 (109) 97 02/11/18 19:47 21 02/11/18 17:30 54 14 155/92 (113) 98 Room Air 02/11/18 17:15 55 14 150/91 (110) 97 Room Air 02/11/18 17:00 98.4 60 14 158/93 (114) 97 Room Air 02/11/18 12:00 97.2 64 19 189/105 (133) 98 Result Diagram: 02/11/18 0629 02/11/18 0629 Other Results Laboratory Tests Test 02/09/18 11:05 02/10/18 05:56 02/11/18 06:29 White Blood Count 19.5 TH/MM3 12.6 TH/MM3 12.5 TH/MM3 Red Blood Count 4.27 MIL/MM3 4.33 MIL/MM3 5.08 MIL/MM3 Hemoglobin 13.9 GM/DL 13.5 GM/DL 16.0 GM/DL Hematocrit 39.4 % 39.9 % 47.1 % Mean Corpuscular Volume 92.2 FL 92.2 FL 92.7 FL Mean Corpuscular Hemoglobin 32.6 PG 31.2 PG 31.5 PG Mean Corpuscular Hemoglobin Concent 35.3 % 33.9 % 33.9 % Red Cell Distribution Width 13.3 % 13.6 % 13.4 % Platelet Count 245 TH/MM3 202 TH/MM3 285 TH/MM3 Mean Platelet Volume 9.0 FL 9.1 FL 9.1 FL Neutrophils (%) (Auto) 87.8 % 76.7 % 79.9 % Lymphocytes (%) (Auto) 6.5 % 15.1 % 15.4 % Monocytes (%) (Auto) 5.4 % 8.1 % 4.4 % Eosinophils (%) (Auto) 0.0 % 0.0 % 0.0 % Basophils (%) (Auto) 0.3 % 0.1 % 0.3 % Neutrophils # (Auto) 17.1 TH/MM3 9.7 TH/MM3 10.0 TH/MM3 Lymphocytes # (Auto) 1.3 TH/MM3 1.9 TH/MM3 1.9 TH/MM3 Monocytes # (Auto) 1.1 TH/MM3 1.0 TH/MM3 0.6 TH/MM3 Eosinophils # (Auto) 0.0 TH/MM3 0.0 TH/MM3 0.0 TH/MM3 Basophils # (Auto) 0.1 TH/MM3 0.0 TH/MM3 0.0 TH/MM3 CBC Comment AUTO DIFF DIFF FINAL AUTO DIFF Differential Total Cells Counted 100 100 Neutrophils % (Manual) 76 % 85 % Band Neutrophils % 10 % 2 % Lymphocytes % 7 % 8 % Monocytes % 6 % 4 % Neutrophils # (Manual) 17.0 TH/MM3 11.0 TH/MM3 Myelocytes 1 % Differential Comment FINAL DIFF MANUAL FINAL DIFF MANUAL Platelet Estimate NORMAL NORMAL Platelet Morphology Comment NORMAL NORMAL Blood Urea Nitrogen 40 MG/DL 27 MG/DL 21 MG/DL Creatinine 1.37 MG/DL 0.93 MG/DL 0.99 MG/DL Random Glucose 261 MG/DL 112 MG/DL 210 MG/DL Calcium Level 8.7 MG/DL 8.2 MG/DL 9.1 MG/DL Sodium Level 137 MEQ/L 140 MEQ/L 137 MEQ/L Potassium Level 3.8 MEQ/L 3.7 MEQ/L 3.5 MEQ/L Chloride Level 101 MEQ/L 104 MEQ/L 99 MEQ/L Carbon Dioxide Level 24.8 MEQ/L 26.3 MEQ/L 25.2 MEQ/L Anion Gap 11 MEQ/L 10 MEQ/L 13 MEQ/L Estimat Glomerular Filtration Rate 53 ML/MIN 83 ML/MIN 77 ML/MIN Metamyelocytes 1 % Red Cell Morphology Comment NORMAL Magnesium Level 1.9 MG/DL Imaging Last Impressions Neck CT 02/07/18 0000 Signed Impressions: CONCLUSION: 1. Very impressive edema in the submental and submandibular regions. Prominent lymph node underneath the right side of the mandible. Concerning thickening o f the left tonsillar pillar and thickening of the left aryepiglottic fold. Diff erential would include a tonsillar infection/abscess or conceivably soft tissue malignancy. Directed visualization with an ENT referral is recommended in the a.m. Objective Remarks GENERAL: This is a well-nourished, well-developed patient, in no apparent distress. SKIN: post-op dressing dry and intact CARDIOVASCULAR: Regular rate and rhythm without murmurs, gallops, or rubs. RESPIRATORY: Clear to auscultation. Breath sounds equal bilaterally. No wheezes , rales, or rhonchi. GASTROINTESTINAL: Abdomen soft, non-tender, nondistended. Normal active bowel sounds MUSCULOSKELETAL: Extremities without clubbing, cyanosis, or edema. NEURO: Alert & Oriented x4 to person, place, time, situation. Moves all ext x4 Procedures Incision and drainage of submental abscess 02/12/[address] Shultz A/P Problem List: (1) Leukocytosis ICD Codes: D72.829 - Elevated white blood cell count, unspecified Status: Acute Plan: Submental abscess Cellulitis of the neck Leukocytosis related to above Patient presents to [facility] with reports of right-sided neck edema CT neck (02/07) reviewed and reveals very impressive edema in the sub-min total and submandibular regions. Prominent lymph node underneath the right side of the mandible. Concerning thickening of the left tonsillar pillar and thickening of the left aryepiglottic fold. Differential would include a peritonsillar infection/abscess or convincingly soft tissue malignancy. Direct visual visualization with ENT referral is recommended in the a.m. - comgmt with ENT, Dr. Shultz - S/P Incision and drainage of submental abscess 02/12/[address] Shultz - per operative notes approximately 30 inches of 1/4 inch iodoform gauzed was used to pack the wound - norco prn - IVFs 100 ml/H - DC'd - Clindamycin (02/07 - present) - Rocephin (02/08 - present) - Decadron 2mg q6h - Dr. Leal discussed case d/w Dr. Shultz (02/10). - DVT prophylaxis with SCDs Hyperglycemia - previously undiagnosed diabetic - HgA1C 9.9 (02/08) - (02/08) decrease decadron to 2mg IV q6 - DC levemir 15 units BID - blood glucose improved will continue to monitor - SSI - observe - Consult nutrition educator - Consult dietitian - start metformin 500mg PO BID - start Glipizide 5 mg PO BID Hypertensive urgency patient presented to the emergency department the blood pressure of 243/134 Patient reports history of hypertension but does not take medications on a daily basis Patient given labetalol 20 mg 1 blood pressure has decreased slightly but is still elevated Continue with clonidine 0.1 mg as needed for hypertension - procardia xl to 60mg PO BID - cozaar to 50mg BID - add HCTZ 12.5 mg - hydralazine 10 mg PO Q8H as needed - observe BP readings - BMP in AM (2) Hyperglycemia ICD Codes: R73.9 - Hyperglycemia, unspecified Status: Chronic (3) Hypertensive urgency ICD Codes: I16.0 - Hypertensive urgency Status: Chronic Assessment and Plan Patient examined. Assessment and plan formulated with Chastity Campbell PA-C. I agree with the above. submental abscess drainage. wound care team coordinating with ENT for instruction. cont abx. no intraop cx's taken. adjusting bp and dm meds for dc home. Chastity Campbell Feb 12, 2018 10:21 You Burris MD Feb 12, 2018 14:03
[2018-02-12 12:00] VITALS: BP 221/110; PULSE 80; RESP 20; TEMP 97.4; O2SAT 97
[2018-02-12] MEDS: HYDROCHLOROTHIAZIDE 12.5 MG CAP PO SCH (12:08)
[2018-02-12] MEDS: metFORMIN HCL 500 MG TAB PO SCH ×2 (12:08→16:43)
[2018-02-12] MEDS: hydrALAZINE HCL 10 MG TAB PO PRN (14:23)
[2018-02-12] MEDS: glipiZIDE 5 MG TAB PO SCH (16:43)
[2018-02-12 17:48] VITALS: BP 185/104; PULSE 67; RESP 20; TEMP 97.3; O2SAT 97
--- NOTE | 2018-02-12 18:43 | PD.WCN.NOT ---
Wound Consult Description: Received wound managment consult for chin . Wet to dry, patient lives alone and needs teaching per ENT Communicated with: MADISON Platt Recommendation: MADISON Platt will teach recommended dressing of wet to dry or other type of packing ordered by ENT to patient. Additional Information: Patient not seen spoke with MADISON Platt and call was placed to ENT Doctor Carrington for clarification of orders, and did not receive a call back. Doctor Shultz saw patient around 1300 and changed dressing per RN and gave verbal instructions to RN for dressing changes. MADISON Platt will teach patient dressing changes with packing per Doctor Shultz's instructions. Marine Foote [facility] Feb 12, 2018 18:43
[2018-02-12 20:30] VITALS: O2SAT 97
[2018-02-13] VITALS: BP 180/104; PULSE 55; RESP 18; TEMP 97.5; O2SAT 98
[2018-02-13] MEDS: cloNIDine HCL 0.1 MG TAB PO PRN ×2 (00:49→10:06)
[2018-02-13] MEDS: CLINDAMYCIN 900 MG/NS PREMIX 50 ML IV SCH ×2 (00:49→10:07)
[2018-02-13] MEDS: cefTRIAXone INJ 1,000 MG in SODIUM CHLORIDE 0.9% INJ 100 ML IV SCH (01:27)
[2018-02-13 07:25] LABS: AUTOMATED NEUTROPHIL # 6.7 TH/MM3 (1.8-7.7); BASOPHIL % 0.1 % (0.0-2.0); EOSINOPHIL % 0.1 % (0.0-4.0); HEMATOCRIT 44.3 % (39.0-51.0); HEMOGLOBIN 15.1 GM/DL (13.0-17.0); LYMPH % 31.7 % (9.0-44.0); LYMPHOCYTE # 3.6 TH/MM3 (1.0-4.8); MEAN CELL VOLUME 92.8 FL (80.0-100.0); MEAN CORPUSCULAR HEMOGLOBIN 31.6 PG (27.0-34.0); MEAN CORPUSCULAR HGB CONC 34.1 % (32.0-36.0); MEAN PLATELET VOLUME 8.7 FL (7.0-11.0); MONO % 8.6 % (0.0-8.0); NEUT % 59.5 % (16.0-70.0); PLATELET COUNT 277 TH/MM3 (150-450); RED BLOOD COUNT 4.77 MIL/MM3 (4.50-5.90); RED CELL DISTRIBUTION WIDTH 13.2 % (11.6-17.2); WHITE BLOOD COUNT 11.3 TH/MM3 (4.0-11.0)
[2018-02-13 07:36] LABS: BICARBONATE 25.9 MEQ/L (21.0-32.0); CALCIUM 8.3 MG/DL (8.5-10.1); CREATININE 0.94 MG/DL (0.60-1.30)
[2018-02-13 08:00] VITALS: BP 189/113; PULSE 74; RESP 18; TEMP 98.1; O2SAT 98
[2018-02-13] MEDS: INSULIN ASPART SUPPLEMENTAL SCALE SQ SCH ×2 (08:00→12:00)
[2018-02-13] MEDS: glipiZIDE 5 MG TAB PO SCH (08:43)
[2018-02-13] MEDS: LOSARTAN 50 MG TAB PO SCH (08:43)
[2018-02-13] MEDS: metFORMIN HCL 500 MG TAB PO SCH (08:43)
[2018-02-13] MEDS: NIFEdipine 60 MG SUSTAINED RELEASE TAB PO SCH (08:43)
[2018-02-13] MEDS: HYDROCHLOROTHIAZIDE 12.5 MG CAP PO SCH (08:43)
[2018-02-13] MEDS: SODIUM CHLORIDE 0.9% FLUSH 10 ML FLUSH IV FLUSH SCH (08:44)
[2018-02-13] MEDS: DEXAMETHASONE SOD PHOS 4 MG/ML VIAL IV PUSH SCH (08:44)
[2018-02-13] MEDS: DOCUSATE SODIUM 50 MG/SENNA 8.6 MG TAB PO SCH (08:44)
[2018-02-13 09:17] VITALS: O2SAT 98
[2018-02-13 09:54] VITALS: BP 210/110
[2018-02-13 09:59] LABS: BANDS 3 % (0-6); LYMPHOCYTES 31 % (9-44); METAMYELOCYTES 10 % (0-1); MONOCYTES 5 % (0-8); NEUTROPHIL # MANUAL DIFF 7.2 TH/MM3 (1.8-7.7); POLYS (SEG NEUTROPHILS) 51 % (16-70)
[2018-02-13 10:48] VITALS: BP 190/110
--- NOTE | 2018-02-13 10:59 | HHI.PR ---
Subjective Remarks Dr Shultz changed dressing at bedside on 02/12 BP is still running quite high with systolic in the 180-200's but pt insisting on going home today Objective Vitals Vital Signs Date Time Temp Pulse Resp B/P (MAP) Pulse Ox O2 Delivery O2 Flow Rate FiO2 02/13/18 09:54 210/110 (143) Automatic Cuff 02/13/18 09:17 98 21 02/13/18 08:00 98.1 74 18 189/113 (138) 98 02/13/18 00:00 97.5 55 18 180/104 (129) 98 02/12/18 20:30 97 02/12/18 17:48 97.3 67 20 185/104 (131) 97 02/12/18 12:00 97.4 80 20 221/110 (147) 97 Result Diagram: 02/13/1817 02/13/18 0617 Other Results Laboratory Tests Test 02/13/18 06:17 White Blood Count 11.3 TH/MM3 Red Blood Count 4.77 MIL/MM3 Hemoglobin 15.1 GM/DL Hematocrit 44.3 % Mean Corpuscular Volume 92.8 FL Mean Corpuscular Hemoglobin 31.6 PG Mean Corpuscular Hemoglobin Concent 34.1 % Red Cell Distribution Width 13.2 % Platelet Count 277 TH/MM3 Mean Platelet Volume 8.7 FL Neutrophils (%) (Auto) 59.5 % Lymphocytes (%) (Auto) 31.7 % Monocytes (%) (Auto) 8.6 % Eosinophils (%) (Auto) 0.1 % Basophils (%) (Auto) 0.1 % Neutrophils # (Auto) 6.7 TH/MM3 Lymphocytes # (Auto) 3.6 TH/MM3 Monocytes # (Auto) 1.0 TH/MM3 Eosinophils # (Auto) 0.0 TH/MM3 Basophils # (Auto) 0.0 TH/MM3 CBC Comment AUTO DIFF Differential Total Cells Counted 100 Neutrophils % (Manual) 51 % Band Neutrophils % 3 % Lymphocytes % 31 % Monocytes % 5 % Neutrophils # (Manual) 7.2 TH/MM3 Metamyelocytes 10 % Differential Comment FINAL DIFF MANUAL Platelet Estimate NORMAL Platelet Morphology Comment NORMAL Red Cell Morphology Comment NORMAL Blood Urea Nitrogen 24 MG/DL Creatinine 0.94 MG/DL Random Glucose 135 MG/DL Calcium Level 8.3 MG/DL Sodium Level 138 MEQ/L Potassium Level 3.4 MEQ/L Chloride Level 102 MEQ/L Carbon Dioxide Level 25.9 MEQ/L Anion Gap 10 MEQ/L Estimat Glomerular Filtration Rate 82 ML/MIN Imaging Last Impressions Neck CT 02/07/18 0000 Signed Impressions: CONCLUSION: 1. Very impressive edema in the submental and submandibular regions. Prominent lymph node underneath the right side of the mandible. Concerning thickening o f the left tonsillar pillar and thickening of the left aryepiglottic fold. Diff erential would include a tonsillar infection/abscess or conceivably soft tissue malignancy. Directed visualization with an ENT referral is recommended in the a.m. Objective Remarks GENERAL: This is a well-nourished, well-developed patient, in no apparent distress. SKIN: post-op dressing dry and intact CARDIAC: Regular RESP: CTA bilaterally. ABD: +BS, soft, non-tender, nondistended. EXT: Extremities without clubbing, cyanosis, or edema. Procedures Incision and drainage of submental abscess 02/12/[address] Shultz A/P Problem List: (1) Submental abscess ICD Codes: L02.01 - Cutaneous abscess of face Status: Acute Plan: Submental abscess Cellulitis of the neck Leukocytosis, related to above - Patient presents to [facility] with reports of right-sided neck edema - CT neck (02/07) --> very impressive edema in the sub-min total and submandibular regions. Prominent lymph node underneath the right side of the mandible. Concerning thickening of the left tonsillar pillar and thickening of the left aryepiglottic fold. Differential would include a peritonsillar infection/abscess or convincingly soft tissue malignancy. Direct visual visualization with ENT referral is recommended in the a.m. - comgmt with ENT, Dr. Shultz - S/P Incision and drainage of submental abscess 02/12/[address] Shultz - per operative notes approximately 30 inches of 1/4 inch iodoform gauzed was used to pack the wound - Dr. Shultz reportedly changed the dressing on 02/12 at the bedside - norco prn - Clindamycin (02/07 - present) - Rocephin (02/08 - present) - Decadron 2mg q6h - DVT prophylaxis with SCDs Hypertensive urgency - patient presented to the emergency department the blood pressure of 243/134. Patient reports history of hypertension but does not take medications on a daily basis - Patient given labetalol 20 mg 1 blood pressure in the ED - Pt started on Procardia xl to 60mg PO BID on 02/09 - Cozaar 25mg BID added on 02/10 and then increased to 50mg BID on 02/11 - HCTZ 12.5 mg daily added on 02/12 - BP readings are still consistently elevated in the 180-200 systolic on 02/13. - Increase HCTZ to 25mg po BID on 02/13 but pt insisting on discharge today - Hydralazine 10 mg PO Q8H as needed and Clonidine PRN - observe BP readings - BMP in AM Hyperglycemia - previously undiagnosed diabetic - HgA1C 9.9 (02/08) - (02/08) decrease Decadron to 2mg IV q6 and decreased further to 2mg Q12H on - DC levemir 15 units BID - blood glucose improved will continue to monitor - SSI - observe - Consult paraeducator - Consult dietitian - Metformin 500mg PO BID started on 02/12 - Glipizide 5 mg PO BID started on 02/12 (2) Cellulitis ICD Codes: L03.90 - Cellulitis, unspecified Status: Acute (3) Leukocytosis ICD Codes: D72.829 - Elevated white blood cell count, unspecified Status: Acute (4) Hyperglycemia ICD Codes: R73.9 - Hyperglycemia, unspecified Status: Chronic (5) Hypertensive urgency ICD Codes: I16.0 - Hypertensive urgency Status: Chronic Angelica Stewart Feb 13, 2018 10:59
[2018-02-13] MEDS ORDERED: POTASSIUM CHLORIDE 20 MEQ CONTROLLED RELEASE TAB PO ONE (11:00)
[2018-02-13 12:00] VITALS: BP_SYST 180; BP_SYST 214; BP_DIAS 110; BP_DIAS 117; PULSE 73; RESP 18; TEMP 98.1; O2SAT 97
--- NOTE | 2018-02-13 12:05 | HHI.FF ---
Face to Face Verification Diagnosis: (1) Submental abscess (2) Cellulitis (3) Hypertensive urgency (4) Leukocytosis (5) Hyperglycemia Home Health Nursing Order: Signs/symptoms of disease process Diabetic education Wound care and dressing changes (Pack wound with 1/4 inch ribbon guaze moistened with saline and cover with vishal gauze BID) Nursing assessment with vital signs Instructions: Check CBC and BMP on 02/18/18 with results to his PCP, Dr. Leal I have seen patient Doug Paul on 02/13/18. My clinical findings support the need for the requested home health care services because: Impaired cognition/judgement Infection w/ risk of complications I certify that my clinical findings support that this patient is homebound because: Unsafe to leave home unassisted Angelica Stewart Feb 13, 2018 12:05 You Burris MD Feb 14, 2018 16:37
[2018-02-13] MEDS ORDERED: METF500 PO (12:12)
[2018-02-13] MEDS ORDERED: COZA50TA PO (12:12)
[2018-02-13] MEDS ORDERED: HYDR25TA5 PO (12:12)
[2018-02-13] MEDS ORDERED: NIFE60TA8 PO (12:12)
[2018-02-13] MEDS ORDERED: HYDROCHLOROTHIAZIDE 12.5 MG CAP PO ONE (12:15)
[2018-02-13] MEDS ORDERED: CLIN300C5 PO (12:25)
--- NOTE | 2018-02-13 13:07 | HHI.DCPOC ---
Discharge Care Plan Diagnosis: (1) Submental abscess (2) Cellulitis (3) Hypertensive urgency (4) Leukocytosis (5) Hyperglycemia (6) Diabetes mellitus type 2, noninsulin dependent Goals to Promote Your Health * To prevent worsening of your condition and complications * To maintain your health at the optimal level Directions to Meet Your Goals Take your medications as prescribed Follow your dietary instruction Follow activity as directed Keep your appointments as scheduled Take your immunizations and boosters as scheduled If your symptoms worsen call your PCP, if no PCP go to Urgent Care Center or Emergency Room Smoking is Dangerous to Your Health. Avoid second hand smoke Call the 24-hour hour crisis hotline for domestic abuse at Angelica Stewart Feb 13, 2018 13:07
--- NOTE | 2018-02-13 13:19 | HHI.DS ---
Discharge Summary Admission Date Feb 07, 2018 at 05:02 Discharge Date: Feb 13, 2018 Admitting Diagnosis neck infection (1) Submental abscess Diagnosis: Principal ICD Codes: L02.01 - Cutaneous abscess of face Status: Acute (2) Cellulitis Diagnosis: Secondary ICD Codes: L03.90 - Cellulitis, unspecified Status: Acute (3) Leukocytosis Diagnosis: Secondary ICD Codes: D72.829 - Elevated white blood cell count, unspecified Status: Acute (4) Hypertensive urgency Diagnosis: Secondary ICD Codes: I16.0 - Hypertensive urgency Status: Chronic (5) Diabetes mellitus type 2, noninsulin dependent Diagnosis: Secondary ICD Codes: E11.9 - Type 2 diabetes mellitus without complications Consultants Dr. Shultz - ENT Procedures Incision and drainage of submental abscess 02/12/[address] Shultz Brief History This is a 62-year-old male patient with past medical history which includes hypertension not currently on medications. Patient presents to emergency department with reports of neck swelling which started 3 days ago (on Sunday) as a small lump on the right side of his neck which is has increased to the entire neck. Patient also reports associated feeling of tightness/fullness throughout his neck. Patient reports he has had, "bad teeth," for sometime. Patient denies fevers or chills. Patient also denies shortness of breath or drooling, however patient does report some coughing/choking when he lays flat and difficulty swallowing food. Patient offers no other medical complaints at this time denies fevers chills cough congestion shortness of breath chest pain nausea vomiting diarrhea constipation or unexpected weight loss. CBC/BMP: 02/13/18 0617 02/13/18 0617 Significant Findings Laboratory Tests Test 02/11/18 06:29 02/13/18 06:17 White Blood Count 12.5 TH/MM3 (4.0-11.0) 11.3 TH/MM3 (4.0-11.0) Neutrophils (%) (Auto) 79.9 % (16.0-70.0) Neutrophils # (Auto) 10.0 TH/MM3 (1.8-7.7) Neutrophils % (Manual) 85 % (16-70) Lymphocytes % 8 % (9-44) Neutrophils # (Manual) 11.0 TH/MM3 (1.8-7.7) Blood Urea Nitrogen 21 MG/DL (7-18) 24 MG/DL (7-18) Random Glucose 210 MG/DL (74-106) 135 MG/DL (74-106) Estimat Glomerular Filtration Rate 77 ML/MIN (>89) 82 ML/MIN (>89) Monocytes (%) (Auto) 8.6 % (0.0-8.0) Monocytes # (Auto) 1.0 TH/MM3 (0-0.9) Metamyelocytes 10 % (0-1) Calcium Level 8.3 MG/DL (8.5-10.1) Potassium Level 3.4 MEQ/L (3.5-5.1) Imaging Last Impressions Neck CT 02/07/18 0000 Signed Impressions: CONCLUSION: 1. Very impressive edema in the submental and submandibular regions. Prominent lymph node underneath the right side of the mandible. Concerning thickening o f the left tonsillar pillar and thickening of the left aryepiglottic fold. Diff erential would include a tonsillar infection/abscess or conceivably soft tissue malignancy. Directed visualization with an ENT referral is recommended in the a.m. PE at Discharge GENERAL: This is a well-nourished, well-developed patient, in no apparent distress. SKIN: post-op dressing dry and intact CARDIAC: Regular RESP: CTA bilaterally. ABD: +BS, soft, non-tender, nondistended. EXT: Extremities without clubbing, cyanosis, or edema. Hospital Course Submental abscess Cellulitis of the neck Leukocytosis, related to above - Patient presents to [facility] with reports of right-sided neck edema. CT neck (02/07) --> very impressive edema in the sub-min total and submandibular regions. Prominent lymph node underneath the right side of the mandible. Concerning thickening of the left tonsillar pillar and thickening of the left aryepiglottic fold. ENT was consulted, Dr. Shultz. Pt underwent incision and drainage of submental abscess 02/12/[address] Shultz. Per operative notes approximately 30 inches of 1/4 inch iodoform gauzed was used to pack the wound. Pt was treated with Clindamycin (02/07 - present) and Rocephin ( - present) and Decadron 2mg q6h which was titrated down to Q12H on 02/12. Dr. Shultz changed the dressing on 02/12 at the bedside and after speaking with him on 02/13 he is recommending continuing packing changes with 1/4 inch ribbon gauze soaked in NS to be backed twice daily with a dry gauze bandage applied over top of the wound. We will arrange for [facility] to help with dressing changes Pt will complete a regimen of Clindamycin 300mg TID x 10 days. Pt is to followup with Dr. Shultz in 10-14 days Pt is to followup with his PCP, Dr. Leal in 5-7 days. Hypertensive urgency - Patient presented to the emergency department the blood pressure of 243/134. Patient reports history of hypertension but does not take medications on a daily basis. Patient given labetalol 20 mg 1 blood pressure in the ED. Pt was started on Procardia xl to 60mg PO BID on 02/09. Cozaar 25mg BID added on 02/10 and then increased to 50mg BID on 02/11. HCTZ 12.5 mg daily added on 02/12. BP readings continued to still consistently be elevated in the 180-200 systolic on 02/13. HCTZ increased to 25mg po BID on 02/13 but pt insisting on discharge on . We offered him to stay another day to try to get his BP under better control but he states that his "blood pressure has been this way since he was 27 " and insisted on discharge today. We will continue on the Procardia XL 60mg BID, Cozaar 25mg BID and HCTZ 25mg BID upon discharge Pt is to monitor his BP at home and we will arrange for [facility] to help with monitoring vitals. We will have labs drawn on Sunday02/18/18 with results to his PCP, Dr. Leal Pt is to followup with his PCP, Dr. Leal, in 5-7 days. Hyperglycemia - Pt is a previously undiagnosed diabetic. HgA1C 9.9 (02/08). Pt was initially started on Levemir which was d/c as the Decadron was weaned down. Pt was seen by public health educator during admission. Metformin 500mg PO BID started on 02/12 and Glipizide 5 mg PO BID started on . His BS control improved significantly but with stopping the Decadron at discharge we don't want his BS to drop too drastically so we will discharge on just the Metformin 500mg PO BID. Pt was given a glucometer during admission and his BS will be monitored at home with results to his PCP. Pt Condition on Discharge: Stable Discharge Disposition: Disch w/ Home Health Serv Discharge Instructions DIET: Follow Instructions for: Diabetic Diet Activities you can perform: Regular-No Restrictions Follow up Referrals: Ear Nose Throat - [address] Shultz PCP Follow-up - [address] Leal New Medications: Clindamycin (Clindamycin) 300 Mg Cap 300 MG PO TID for Infection for 10 Days, #30 CAP 0 Refills Hydrochlorothiazide (Hydrochlorothiazide) 25 Mg Tab 25 MG PO BID@09,18 for htn, #62 TAB Losartan (Cozaar) 50 Mg Tab 50 MG PO Q12HR for htn, #62 TAB Metformin (Glucophage) 500 Mg Tab 500 MG PO BIDPC for Blood Sugar Management, #62 TAB Nifedipine ER 24 HR (Nifedipine ER 24 HR) 60 Mg Tab 60 MG PO BID for htn, #62 TAB Angelica Stewart Feb 13, 2018 13:19
[2018-02-13] MEDS ORDERED: CLINDAMYCIN 900 MG/NS 100 ML IV SCH ×2 (18:00)
[2018-02-13] MEDS ORDERED: HYDROCHLOROTHIAZIDE 25 MG TAB PO SCH (18:00)
== END 2018-02-13 15:15 | disposition home health service (06) | DRG 603 ==
LOC: NEPE 03:04 → NEDA 05:02 → N07A 12:14
PROVIDERS: ADMIT Hospitalist; ATTEND Hospitalist
PROC: 0W953ZZ Drainage of Lower Jaw, Percutaneous Approach (ICD-10-PCS; principal; 2018-02-11 16:11)
DX: L02.01 Cutaneous abscess of face (principal); E11.65 Type 2 diabetes mellitus with hyperglycemia; I10 Essential (primary) hypertension; L03.221 Cellulitis of neck; I16.0 Hypertensive urgency; D72.829 Elevated white blood cell count, unspecified
CPT/HCPCS: 70490; 80048; 80053; 82948; 83036; 83605; 83690; 83735; 85007; 85025; 85027; 87040; 87186; 87205; 93005; 93306; 96365; 96366; 96375; J0131; J0330; J0696; J1100; J1815; J2405; J3010; J7030